=== PATIENT | female | born 1985 | race Caucasian/White ===

== ENCOUNTER 2016-07-07 21:07 | Emergency (ER) | payer SELFPAY ==
[~2016-07-07] VITALS: Ht 160 cm; Wt 54.5 kg
[~2016-07-07 21:07] MED LIST: AMOXICILLIN 50500 MG PO; FLEXERIL 1010 MG/TAB PO; NORCO 325 MG-51 TAB PO; PERCOCET 325 MG1 TA2 PO; ULTRAM 50MG TAB50 MG PO
[2016-07-07 21:09] VITALS: TEMP 96.8
[2016-07-07 23:05] VITALS: BP 106/52; PULSE 58
== END 2016-07-07 23:06 | disposition home or self-care (01) ==
LOC: COL.ER 21:07
DX: S93.401A Sprain of unspecified ligament of right ankle, initial encounter (principal); X50.1XXA Overexertion from prolonged static or awkward postures, initial encounter; Y92.009 Unspecified place in unspecified non-institutional (private) residence as the place of occurrence of the external cause
CPT/HCPCS: J1885

== ENCOUNTER 2017-03-24 12:09 | Emergency (ER) | payer SELFPAY ==
[~2017-03-24] VITALS: Ht 167.6 cm; Wt 65.5 kg
[2017-03-24 12:12] VITALS: TEMP 97.5
[2017-03-24 13:23] LABS: BASO # 0.1 (0.0-0.2); BASO % 0.7 % (0.0-2.0); EOS # 0.2 (0.0-0.7); EOS % 2.3 % (0-4.0); GRAN # 5.2 (1.4-6.5); GRAN % 62.5 % (42.2-75.2); LYMPH # 2.2 (1.2-3.4); LYMPH % 26.8 % (20.0-51.0); MEAN CELL VOLUME 80 fl (80.0-100.0); MEAN CORPUSCULAR HGB CONC 31 g/dl (33.0-37.0); MEAN PLATELET VOLUME 8.9 fl (7.4-10.4); MONO # 0.6 (0.1-0.6); MONO % 7.5 % (1.7-9.3); PLATELET COUNT 328 K/mm3 (130-400); REDCELL DISTRIBUTION WIDTH-CV 15.1 % (11.5-14.5); WHITE BLOOD COUNT 8.4 K/mm3 (4.8-10.8)
[2017-03-24 13:42] LABS: ALANINE AMINOTRANSFERASE 45 U/L (9-52); ALBUMIN 3.8 gm/dL (3.5-5.0); ALKALINE PHOSPHATASE 45 U/L (50-136); ANION GAP 8 mmol/L (7-16); BILIRUBIN,TOTAL 0.3 mg/dL (0.0-1.0); BLOOD UREA NITROGEN 14 mg/dL (7-17); CALCIUM 8.8 mg/dL (8.4-10.2); CARBON DIOXIDE 25 mmol/L (22-30); CHLORIDE 107 mmol/L (98-107); CREATININE, serum 0.63 mg/dL (0.52-1.25); GLUCOSE 87 mg/dL (74-106); POTASSIUM 4.1 mmol/L (3.4-5.0); SODIUM 140 mmol/L (137-145); TOTAL PROTEIN 6.7 gm/dL (6.4-8.2)
[2017-03-24 14:09] LABS: HEMATOCRIT 34.4 % (37.0-47.0); HEMOGLOBIN 10.7 g/dl (12.5-16.0); MEAN CORPUSCULAR HEMOGLOBIN 25 pg (27.0-31.0)
[2017-03-24] MEDS ORDERED: TRAVEL SICKNESS25 MG PO (14:32)
[2017-03-24 14:41] VITALS: BP 111/66; PULSE 60
== END 2017-03-24 14:41 | disposition home or self-care (01) ==
LOC: COL.ER 12:09
PROVIDERS: Physician Assistant Medical
DX: R42 Dizziness and giddiness (principal); F17.210 Nicotine dependence, cigarettes, uncomplicated; Z90.89 Acquired absence of other organs; Z98.890 Other specified postprocedural states

== ENCOUNTER 2019-02-16 16:51 | Emergency (ER) | payer SELFPAY ==
[~2019-02-16] VITALS: Ht 167.6 cm; Wt 68.2 kg
[~2019-02-16 16:51] MED LIST changes: +TRAVEL SICKNESS25 MG PO
[2019-02-16 16:58] VITALS: BP 128/90; TEMP 98.2
[2019-02-16 18:27] VITALS: PULSE 71
== END 2019-02-16 18:36 | disposition home or self-care (01) ==
LOC: COL.ER 16:51
DX: S43.402A Unspecified sprain of left shoulder joint, initial encounter (principal); F17.210 Nicotine dependence, cigarettes, uncomplicated; Z90.49 Acquired absence of other specified parts of digestive tract; W18.2XXA Fall in (into) shower or empty bathtub, initial encounter

== ENCOUNTER 2021-01-10 15:54 | Emergency (ER) | payer SELFPAY ==
[~2021-01-10] VITALS: Ht 167.6 cm; Wt 69.5 kg
[2021-01-10 16:09] VITALS: TEMP 97.6
[2021-01-10 18:40] LABS: COLLECTION METHOD CLEAN CATCH
[2021-01-10 18:47] LABS: PH 5 (5-8); URINE APPEARANCE Hazy; URINE BACTERIA None Seen /hpf; URINE BILIRUBIN Negative (NEGATIVE); URINE BLOOD 2+ (NEGATIVE); URINE COLOR Straw; URINE GLUCOSE Negative (NEGATIVE); URINE KETONE Negative (NEGATIVE); URINE LEUKOCYTE ESTERASE Negative (NEGATIVE); URINE NITRATE Negative (NEGATIVE); URINE PROTEIN(semi-quant) Negative (NEGATIVE); URINE RBC 0-2 /hpf; URINE UROBILINOGEN Negative (NEGATIVE)
[2021-01-10 19:27] LABS: BASO # 0.1 (0.0-0.2); EOS # 0.2 (0.0-0.7); GRAN # 5.4 (1.4-6.5); GRAN % 57.1 % (42.2-75.2); HEMATOCRIT 42.6 % (37.0-47.0); HEMOGLOBIN 13.8 g/dl (12.5-16.0); LYMPH % 31.9 % (20.0-51.0); MEAN CELL VOLUME 85 fl (80.0-100.0); MEAN CORPUSCULAR HEMOGLOBIN 28 pg (27.0-31.0); MEAN CORPUSCULAR HGB CONC 32 g/dl (33.0-37.0); MEAN PLATELET VOLUME 9.5 fl (7.4-10.4); MONO # 0.7 (0.1-0.6); MONO % 7.8 % (1.7-9.3); PLATELET COUNT 327 K/mm3 (130-400); RED BLOOD COUNT 5.02 M/mm3 (4.10-5.30); REDCELL DISTRIBUTION WIDTH-CV 16.6 % (11.5-14.5)
[2021-01-10 19:32] LABS: ALBUMIN 4.4 gm/dL (3.5-5.0); BILIRUBIN,TOTAL 0.2 mg/dL (0.0-1.0); C-REACTIVE PROTEIN 0.8 mg/dL (0.0-0.9); CALCIUM 9.4 mg/dL (8.4-10.2); CREATININE, serum 0.54 (0.52-1.25); TOTAL PROTEIN 7.8 gm/dL (6.4-8.2)
[2021-01-10 20:58] VITALS: BP 133/70; PULSE 76
== END 2021-01-10 20:58 | disposition home or self-care (01) ==
LOC: COL.ER 15:54
PROVIDERS: Nurse Practitioner Primary Care
DX: R10.31 Right lower quadrant pain (principal); R10.32 Left lower quadrant pain; F17.200 Nicotine dependence, unspecified, uncomplicated; Z32.02 Encounter for pregnancy test, result negative; Z90.49 Acquired absence of other specified parts of digestive tract
CPT/HCPCS: J1885; J7030; Q9967

== ENCOUNTER 2022-10-05 19:15 | Emergency (ER) | payer SELFPAY ==
[~2022-10-05] VITALS: Ht 160 cm; Wt 72.7 kg
[2022-10-05 21:03] LABS: BASO # 0.1 K/mm3 (0.0-0.2); BASO % 0.7 % (0.0-2.0); EOS # 0.1 K/mm3 (0.0-0.7); GRAN # 2.9 K/mm3 (1.4-6.5); GRAN % 42.5 % (42.2-75.2); HEMATOCRIT 38.3 % (37.0-47.0); HEMOGLOBIN 12.3 g/dl (12.5-16.0); LYMPH % 43.4 % (20.0-51.0); MEAN CELL VOLUME 86 fl (80.0-100.0); MEAN CORPUSCULAR HEMOGLOBIN 28 pg (27-31); MEAN CORPUSCULAR HGB CONC 32 g/dl (33.0-37.0); MEAN PLATELET VOLUME 9.3 fl (7.4-10.4); MONO # 0.8 K/mm3 (0.1-0.6); MONO % 11.3 % (1.7-9.3); PLATELET COUNT 256 K/mm3 (130-400); RED BLOOD COUNT 4.44 M/mm3 (4.10-5.30); REDCELL DISTRIBUTION WIDTH-CV 15.9 % (11.5-14.5)
[2022-10-05 21:05] LABS: COLLECTION METHOD CLEAN CATCH
[2022-10-05 21:14] LABS: ALANINE AMINOTRANSFERASE 19 U/L (0-55); ALBUMIN 3.9 gm/dL (3.5-5.0); ALKALINE PHOSPHATASE 42 U/L (40-150); ANION GAP 9 mmol/L (7-16); AST,SGOT 22 U/L (5-34); BILIRUBIN,TOTAL 0.1 mg/dL (0.2-1.2); BLOOD UREA NITROGEN 12 mg/dL (7-19); CALCIUM 8.8 mg/dL (8.4-10.2); CARBON DIOXIDE 20 mmol/L (22-29); CHLORIDE 110 mmol/L (98-107); CREATININE, serum 0.65 mg/dL (0.57-1.11); GLUCOSE 90 mg/dL (70-99); LIPASE 32 U/L (8-78); POTASSIUM 3.8 mmol/L (3.5-4.5); SODIUM 139 mmol/L (136-145); TOTAL PROTEIN 6.7 gm/dL (6.2-8.1)
[2022-10-05 21:22] LABS: PH 6.5 (5.0-8.5); SQUAMOUS EPITHELIAL 0-2 /hpf (0-10); URINE APPEARANCE Clear (CLEAR/HAZY); URINE BACTERIA None Seen /hpf (NONE SEEN); URINE COLOR Yellow (YELLOW); URINE RBC 0-2 /hpf (0-2)
[2022-10-05 21:23] LABS: TROPONIN-I < 0.010 ng/mL (0.00-0.033)
[2022-10-05 21:23] LABS: URINE BLOOD TRACE-INTACT (NEGATIVE); URINE GLUCOSE Negative (NEGATIVE); URINE KETONE Negative (NEGATIVE); URINE NITRATE Negative (NEGATIVE); URINE PROTEIN(semi-quant) Negative (NEGATIVE); URINE UROBILINOGEN 0.2 E.U/dL (0.2-1.0)
[2022-10-05 22:23] VITALS: BP 110/69; PULSE 57; TEMP 98.3
== END 2022-10-05 22:23 | disposition home or self-care (01) ==
LOC: COL.ER 19:15
PROVIDERS: Nurse Practitioner Primary Care
DX: R07.89 Other chest pain (principal); Z87.891 Personal history of nicotine dependence
CPT/HCPCS: J1885